=== PATIENT | male | born 1950 | race Caucasian/White ===

== ENCOUNTER 2024-03-06 11:13 | Emergency (ER) | payer MEDICARE, OTHER ==
[2024-03-06] MEDS: Lidocaine/Epineph/Tetracaine 3 ML Syringe TOP ONE ×2 (13:50→15:18)
[2024-03-06] MEDS: Diphtheria,Pertussis(Acell),Tetanus Vaccine 0.5 ML Syringe IM ONE (16:48)
[2024-03-06] MEDS: Bacitracin Oint 1 GM U/D Packet TOP ONE (16:48)
== END 2024-03-06 17:02 | disposition home or self-care (01) ==
LOC: JP.ED 11:13
DX: S61.213A Laceration without foreign body of left middle finger without damage to nail, initial encounter (principal); Z23 Encounter for immunization; Z87.891 Personal history of nicotine dependence; Z79.899 Other long term (current) drug therapy; W23.1XXA Caught, crushed, jammed, or pinched between stationary objects, initial encounter
CPT/HCPCS: 12001; 12002; 73120; 90471; 90715; 99283; A9270

== ENCOUNTER 2025-02-05 16:19 | Emergency (ER) | payer MEDICARE, OTHER ==
[2025-02-05] MEDS: Simethicone 125 MG Tab.Chew PO STA (18:02)
[2025-02-05 18:04] LABS: BASOPHILS PERCENT AUTO 0.1 % (0.1-1.3); EOSINOPHILS PERCENT AUTO 0.0 % (0.0-5.4); IMMATURE GRAN ABSOLUTE AUTO 0.03 K/uL (0.00-0.23); IMMATURE GRAN PERCENT AUTO 0.3 % (0.0-0.7); LYMPHOCYTES ABSOLUTE AUTO 0.14 K/uL (0.8-3.3); LYMPHOCYTES PERCENT AUTO 1.5 % (11.4-47.7); MONOCYTES ABSOLUTE AUTO 0.50 K/uL (0.20-0.90); MONOCYTES PERCENT AUTO 5.4 % (3.3-12.6); NEUTROPHILS ABSOLUTE AUTO 8.61 K/uL (1.0-7.6); NEUTROPHILS PERCENT AUTO 92.7 % (40.0-78.1); PLATELET COUNT,PLT 139 K/uL (130-375); RED BLOOD CELL COUNT 4.69 M/uL (4.14-5.76); WHITE BLOOD CELL COUNT,WBC 9.3 K/uL (3.2-11.0)
[2025-02-05 18:05] LABS: BASOPHILS ABSOLUTE AUTO 0.01 K/uL (0.00-0.10); EOSINOPHILS ABSOLUTE AUTO 0.00 K/uL (0.00-0.40)
[2025-02-05 18:24] LABS: A/G RATIO 1.2 (1.2-2.2); ALANINE AMINOTRANSFERASE,ALT 28 U/L (12-78); ASPARTATE AMNIOTRANSFERASE,AST 23 U/L (15-37); BILIRUBIN TOTAL 1.2 mg/dL (0.2-1.0); BLOOD UREA NITROGEN,BUN 20 mg/dL (7-18); CARBON DIOXIDE,CO2 22 mmol/L (21-32); CHLORIDE,CL 99 mmol/L (100-108); CREATININE 1.1 mg/dL (0.8-1.3); EST CRCL DRUG DOSING (CG) 60.70 mL/min; ESTIMATED GFR 71 mL/min (>60); GLUCOSE RANDOM 167 mg/dL (74-106); POTASSIUM,K 3.9 mmol/L (3.6-5.2); PROTEIN TOTAL,TP 7.1 g/dL (6.4-8.2); SODIUM,NA 135 mmol/L (140-148)
== END 2025-02-05 18:41 | disposition home or self-care (01) ==
LOC: JP.ED 16:19
DX: R14.3 Flatulence (principal); I10 Essential (primary) hypertension; Z12.11 Encounter for screening for malignant neoplasm of colon; Z88.8 Allergy status to other drugs, medicaments and biological substances; Z79.899 Other long term (current) drug therapy; Z86.16 Personal history of COVID-19
CPT/HCPCS: 36415; 74018; 80053; 85025; 99284; A9270

== ENCOUNTER 2025-03-12 08:35 | Day surgery (SDC) | payer MEDICARE, OTHER ==
[2025-03-12] MEDS: Lactated Ringers 1,000 ML IV SCH (08:53)
[2025-03-12] MEDS ORDERED: fentaNYL 100 MCG/2 ML SDV ONE (10:41)
[2025-03-12] MEDS ORDERED: Propofol 200 MG/20 ML SDV ONE (10:41)
== END 2025-03-12 12:25 | disposition home or self-care (01) ==
LOC: JP.SDS 08:35
PROVIDERS: ATTEND Surgery
DX: K29.50 Unspecified chronic gastritis without bleeding (principal); K22.89 Other specified disease of esophagus; I10 Essential (primary) hypertension
CPT/HCPCS: 00731; 43239; J2704; J3010; J7120; 88305; 88342